=== PATIENT | male | born 1970 | race Caucasian/White ===

== ENCOUNTER 2017-11-01 13:43 | Emergency (ER) | payer MEDICAID ==
[2017-11-01] MEDS: HYDROCODONE/APAP (5/325) TAB PO (14:36)
[2017-11-01] MEDS: KETOROLAC 60 MG INJ IM (14:36)
== END 2017-11-01 15:37 | disposition home or self-care (01) ==
LOC: E/R 13:43
DX: M25.561 Pain in right knee (principal); I10 Essential (primary) hypertension; E11.9 Type 2 diabetes mellitus without complications; F17.210 Nicotine dependence, cigarettes, uncomplicated
CPT/HCPCS: 73562; 96372; 99284-25